=== PATIENT | male | born 1965 | race Two or more races ===

== ENCOUNTER 2023-04-29 14:42 | Emergency (ER) | payer OTHER, SELFPAY ==
--- NOTE | ~2023-04-29 | XR_ITS ---
EXAMINATION: XR CHEST CLINICAL INFORMATION: Shortness of breath COMPARISON: None available. TECHNIQUE: Frontal view of the chest was obtained. FINDINGS: Lungs are clear. No pulmonary vascular congestion. There is no pleural effusion. The heart size is normal. The cardiac and mediastinal contours are normal. Orthopedic screw noted in the proximal left humerus. There is osseous fusion of the posterior left fifth and sixth ribs. This may be congenital. XR/XR chest 1V IMPRESSION: No acute abnormality of the chest.
--- NOTE | ~2023-04-29 | US_ITS ---
EXAMINATION: US VENOUS ULTRASOUND WITH DOPPLER LOWER EXTREMITY, BILATERAL CLINICAL INFORMATION: Edema COMPARISON: None available. TECHNIQUE: Ultrasound of the deep veins is performed from the hip to the calf with compression sonography and color and pulse Doppler assessment. Spectral analysis with color-flow imaging is performed. FINDINGS: RIGHT: There is normal venous compression and respiratory variation and augmented flow. The visualized common femoral vein, superficial femoral vein, profunda femoral vein, popliteal vein, and the trifurcation region shows no evidence of deep venous thrombosis. There is no significant popliteal fossa cyst. Prominent lymph nodes are seen in the right inguinal region with fatty joseluis more likely reactive in nature. LEFT: There is normal venous compression and respiratory variation and augmented flow. The visualized common femoral vein, superficial femoral vein, profunda femoral vein, popliteal vein, and the trifurcation region shows no evidence of deep venous thrombosis. There is no significant popliteal fossa cyst. Prominent lymph nodes in the left inguinal region with fatty joseluis more likely reactive in nature. If the patient's symptoms persist, followup ultrasound in 5 days 7 days might be of value to exclude proximal propagation from a non-visualized calf vein. US/US venous duplex LE BI IMPRESSION: No DVT demonstrated in the bilateral lower extremity.
[2023-04-29 14:48] VITALS: BP 148/82; PULSE 87; O2SAT 95
[2023-04-29 14:52] VITALS: BP 128/77; PULSE 85; RESP 16; TEMP 37.2; O2SAT 94; BMI 26.5
--- NOTE | 2023-04-29 15:22 | ED.GENADULT ---
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 Related Data Previous Rx's Medication Instructions Recorded furosemide 20 mg tablet (Lasix) 20 mg PO DAILY #30 tabs 04/29/23 Allergies Allergy/AdvReac Type Severity Reaction Status Date / Time No Known Allergies Allergy Verified 04/29/23 15:29 Review of Systems Review of Systems: Yes all other systems are reviewed and are negative Neurologic: Denies Sensory deficit (Neuro) [facility] Social History Social History Advance Directives: No Advance Directives Information Provided: No Physical Exam ED Vital Signs: Vital Signs - 24 hr 04/29/23 14:52 Temperature 99 F Pulse Rate 85 Respiratory Rate 16 Blood Pressure 128/77 Pulse Oximetry 94 Oxygen Delivery Method Room Air BMI result Body Mass Index 26.5 Const Other: flat affect General: healthy appearing Nutritional Appearance: average body habitus Orientation/consciousness: oriented to person and patient oriented x3 Limitations: no limitations HENMT Head: Yes normal to inspection Ears: external ears normal General nose exam: Normal external nose present Mouth: Normal oral and palatal mucosa present and oropharynx normal Throat: Yes posterior oropharynx normal Eyes General: appearance normal, both eyes and all related structures Neck Neck: Yes normal visual inspection Chest Chest palpation & inspection: normal inspection of the chest Resp Auscultation: clear to auscultation bilaterally Cardio Jugular venous distension: no JVD Rate: regular rate Rhythm: regular rhythm Heart sounds: S1 normal heart sound present and S2 normal heart sound present GI Inspection: Yes normal to inspection Palpation (GI): Soft to palpation, nontender and No hepatosplenomegaly present Auscultation: normal bowel sounds General: Yes no CVA tenderness Back/Spine/Pelvis Back: no CVA tenderness Skin General skin exam: no rashes or lesions noted Neuro General: oriented to person and patient oriented x3 Cranial nerves: Yes CN's II-XII intact bilaterally Motor exam (neuro): 5/5 motor strength present throughout Sensory Exam: No Sensory deficit (Neuro) Extrem Other: bilateral 3+ edema Psych Appearance: grossly normal Course Reevaluation(s) Reevaluation #1: no evidence of DVT or chf will dc on lasix Time: 18:49 Medications Administered Discontinued Medications Generic Name Dose Route Start Last Admin Trade Name Richardq PRN Reason Stop Dose Admin Furosemide 20 mg 04/29/23 15:31 04/29/23 16:19 Furosemide 20 Mg Tablet PO 04/29/23 15:32 20 mg ONCE ONE Administration Protocol Medical Decision Making Differential Diagnosis Differential Diagnoses: The differential diagnosis associated with the presentation includes (CHF, renal failure, liver failure, DVT were all considered) Admission/Observation Consideration of admission/observation: Escalation of care including admission/observation considered (upon arrival patient was considered for admission) Lab Data MDM Lab Attestation statement: I reviewed the patient's lab results. 04/29/23 15:51 04/29/23 15:51 Labs: Lab Results 04/29/23 Range/Units 15:51 WBC 12.0 H (4.8-10.8) X10*3/uL RBC 3.72 L (4.60-5.80) X10*6/uL Hgb 11.1 L (14.0-18.0) g/dl Hct 34.1 L (42.0-52.0) % MCV 91.7 (80.0-98.0) fL MCH 29.8 (27.0-33.0) pg MCHC 32.6 (31.0-36.0) g/dl RDW 14.1 (11.0-16.0) % Plt Count 239 (160-400) X10*3/uL MPV 8.6 L (9.4-12.4) fL Immature Gran % (Auto) 4.1 H (0.0-0.4) % Neut % (Auto) 78.6 H (45-73) % Lymph % (Auto) 4.4 L (20-40) % Beadle % (Auto) 11.8 H (2-11) % Eos % (Auto) 0.8 (0-4) % Baso % (Auto) 0.3 (0-2) % Lymph # (Auto) 0.5 L (1.2-4.9) X10*3/uL Beadle # (Auto) 1.4 H (0.1-1.2) X10*3/uL Eos # (Auto) 0.1 (0.0-0.4) X10*3/uL Baso # (Auto) 0.0 (0.0-0.2) X10*3/uL Abs Immat Gran (auto) 0.49 H (0.00-0.03) X10*3/uL Absolute Neuts (auto) 9.4 H (2.0-8.3) x10*3/uL Absolute Nucleated RBC 0.000 (0.0-0.012) X10*3/uL Nucleated RBC % (auto) 0.0 (0.0-0.2) /100WBC Sodium 137 (135-145) mmol/L Potassium 4.9 (3.3-5.1) mmol/L Chloride 101 (96-108) mmol/L Carbon Dioxide 27 (22-29) mmol/L Anion Gap 14 (12-20) BUN 23 H (9-16) mg/dL Creatinine 0.80 (0.5-1.4) mg/dL Estim Creat Clear Calc 107.7 Estimated GFR > 60 Random Glucose 107 (60-115) mg/dL Calcium 9.6 (8.4-10.2) mg/dL Total Bilirubin 0.3 (0.0-1.0) mg/dL AST 41 H (5-37) U/L ALT 50 H (0-40) U/L Alkaline Phosphatase 88 (39-117) U/L B-Natriuretic Peptide 10 (<100) pg/mL Total Protein 7.0 (6.5-8.0) g/dL Albumin 3.9 (3.5-5.0) g/dL Independent Interpretation I performed an independent interpretation of an: EKG (sinus [address] or twave changes) and Plain X-Ray (CXR no chf or infiltrate) Independent Historian Clinical information obtained from an independent historian. History obtained from or confirmed by: EMS Chronic Conditions Patient?s care impacted by: Hypertension and Other (psychiatric) Social Determinants Patient?s care significantly limited by Social Determinants of Health including: Other Social Determinant of Health (psychiatric illness) Discharge Plan Discharge Clinical Impression: Edema Patient Disposition: Home, Self-Care Instructions: Leg Edema (ED) Prescriptions: New furosemide [Lasix] 20 mg tablet 20 mg PO DAILY Qty: 30 0RF Referrals: Shakira Jones [Primary Care Provider] - 1 week
--- NOTE | 2023-04-29 15:30 | ECG_ITS ---
Test Reason : SOB Blood Pressure : / mmHG Vent. Rate : 082 BPM Atrial Rate : 082 BPM P-R Int : 136 ms QRS Dur : 080 ms QT Int : 382 ms P-R-T Axes : 023 029 030 degrees QTc Int : 446 ms Normal sinus rhythm Normal ECG No previous ECGs available Referred By: Jake Apple Electronically Signed By:OLIVER MAIN
[2023-04-29 15:54] LABS: MANUAL DIFF FLAG NO
[2023-04-29 15:55] LABS: Basophils Percent Auto 0.3 % (0-2); Eosinophils Absolute Auto 0.1 X10*3/uL (0.0-0.4); Eosinophils Percent Auto 0.8 % (0-4); Hematocrit 34.1 % (42.0-52.0); Hemoglobin 11.1 g/dl (14.0-18.0); Imm Gran Abs Auto 0.49 X10*3/uL (0.00-0.03); Imm Gran Pct Auto 4.1 % (0.0-0.4); Lymphocytes Absolute Auto 0.5 X10*3/uL (1.2-4.9); Lymphocytes Percent Auto 4.4 % (20-40); Mean Corpuscular HGB Conc 32.6 g/dl (31.0-36.0); Mean Corpuscular Hemoglobin 29.8 pg (27.0-33.0); Mean Corpuscular Volume 91.7 fL (80.0-98.0); Mean Platelet Volume 8.6 fL (9.4-12.4); Monocytes Absolute Auto 1.4 X10*3/uL (0.1-1.2); Monocytes Percent Auto 11.8 % (2-11); Neutrophils Absolute Auto 9.4 x10*3/uL (2.0-8.3); Neutrophils Percent Auto 78.6 % (45-73); Platelet Count 239 X10*3/uL (160-400); Red Blood Count 3.72 X10*6/uL (4.60-5.80); Red Cell Distribution Width 14.1 % (11.0-16.0)
[2023-04-29 16:10] LABS: Alanine Aminotransferase 50 U/L (0-40); Albumin Level 3.9 g/dL (3.5-5.0); Alkaline Phosphatase 88 U/L (39-117); Anion Gap 14 (12-20); Aspartate Amino Transferase 41 U/L (5-37); Bilirubin Total 0.3 mg/dL (0.0-1.0); Blood Urea Nitrogen 23 mg/dL (9-16); Calcium 9.6 mg/dL (8.4-10.2); Carbon Dioxide 27 mmol/L (22-29); Chloride 101 mmol/L (96-108); Creatinine Clr Calc Pharmacy 107.7; Estimated Glomerular Filt Rate > 60; Glucose Random 107 mg/dL (60-115); Potassium 4.9 mmol/L (3.3-5.1); Sodium 137 mmol/L (135-145)
[2023-04-29 16:15] LABS: B Type Natriuretic Peptide 10 pg/mL (<100)
[2023-04-29] MEDS: Furosemide 20 MG TABLET PO (16:19)
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
--- OUTSIDE RECORDS SUMMARY | 2023-04-29 17:30 | XMS_ITS | Continuity of Care Document ---
Author Name Unknown Organization [facility] Address [address] [place] [address]- Care Team Providers Care Actuary Name Role Phone Shakira Jones MD Primary Care Physician Encounter [facility] [place] Date(s): 11/07/19 - 12/07/19 [facility] [place] [address] [place] [address]- [facility] Attending Physician: Campos Begum MD Admitting Physician: Campos Begum MD Allergies, Adverse Reactions, Alerts Substance Reaction [...] 11/21/19 13:25:00 EDT, Route to Pharmacy Electronically, [facility]acy #[id number], 180, cm, 06/21/19 14:04:00 [...] tablet, 3 Refills, Maintenance, 08/18/19 16:53:00 EDT, [facility]/pharmacy #[id number], 180, cm, 06/21/19 14:04:00 EST, Height, 88, kg, 10/18/18 10:38:00 EDT, Dry Weight Start Date: 08/18/19 Stop Date: 12/16/19 Status: Ordered buprenorphine-naloxone 8 mg-2 mg sublingual film 1 film, Sublingual, Daily, [id number] dissolve under the tongue DUE 08/31/2019, # 7 film, 0 Refills, Maintenance, 08/25/19 10:56:00 EDT, Film, [facility], 1 film Sublingual Daily,x7days,[id number]; dissolve under the tongue;... Start Date: 08/25/19 [...] Maintenance, :17:00 EDT, Route to Pharmacy Electronically, [facility]acy #[id number], 180, cm, 06/21/19 14:04:00 EST, Height, 88, kg, 10/18/18 10:38:00 EDT, Dry Weight Start Date: 11/30/19 Status: Ordered Tylenol Extra Strength 500 mg oral tablet 2 tablet = 1,000 mg, By Mouth, 3 times a day, PRN Pain , Mild, not to exceed 3000 mg/day, # 50 tablet, 0 Refills, Maintenance, 10/02/19 18:19:00 EDT, [facility]/pharmacy #[id number], 180, cm, 06/21/19 14:04:00 [...]
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
--- OUTSIDE RECORDS SUMMARY | 2023-04-29 17:31 | XMS_ITS | Continuity of Care Document ---
Author Name Unknown Organization [facility] Address [address] [place] [address]- Care Team Providers Care Career Law Clerk Name Role Phone Robert MORALES, Shakira Primary Care Physician Encounter [facility] Date(s): 04/10/19 - 05/19/19 [facility]/[address] [address]- [facility] Attending Physician: Gaurav Liriano MD Admitting Physician: [...] 3 Refills, Maintenance, Route to Pharmacy Electronically, [id number], [facility] Start Date: 07/21/18 Status: [...]
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
--- OUTSIDE RECORDS SUMMARY | 2023-04-29 17:31 | XMS_ITS | Continuity of Care Document ---
Author Name Unknown Organization [facility] Address [address] [place] [address]- Care Team Providers Care Police Pilot Name Role Phone Robert MORALES, Shakira Primary Care Physician Encounter [facility] Date(s): 08/30/19 - 10/07/19 [facility]/[address] [address]- [facility] Attending Physician: Gaurav Liriano MD Admitting [...] 08/18/19 16:54:00 EDT, Route to Pharmacy Electronically, [facility]/pharmacy #[id number], 180, cm, 06/21/19 14:04:00 EST, Height, 88, kg, 06/... Start Date: 08/18/19 Status: Ordered aspirin 325 mg oral delayed release tablet 325 mg, 1, tablet, By Mouth, Daily, # 30 tablet, Refills 0, Tot. Refills 0, Maintenance, 07/12/19 10:06:00 EDT, Print Requisition Start Date: 07/12/19 Status: Ordered atorvastatin 10 mg oral tablet 1 tablet = 10 mg, By Mouth, Daily, # 30 tablet, 3 Refills, Maintenance, 08/18/19 16:53:00 EDT, [facility]/pharmacy #[id number], 180, cm, 06/21/19 14:04:00 EST, Height, 88, kg, 10/18/18 10:38:00 EDT, Dry Weight Start Date: 08/18/19 Stop Date: 12/16/19 Status: Ordered buprenorphine-naloxone 8 mg-2 mg sublingual film 1 film, Sublingual, Daily, [id number] dissolve under the tongue DUE 08/31/2019, # 7 film, 0 Refills, Maintenance, 08/25/19 10:56:00 EDT, Film, [facility], 1 film Sublingual Daily,x7days,Instr:[id number]; dissolve under the tongue;... Start Date: 08/25/19 [...] By Mouth, Daily, # 30 capsule, Refills 1, Tot. Refills 1, Maintenance, 209:50:00 EDT, Route to Pharmacy Electronically, [facility]/pharmacy #[id number], 180, cm, 06/21/19 14:04:00 EST, Height, 88, kg, 10/18/18 10:38:00 EDT, Dry Weight Start Date: 09/06/19 Status: Ordered traZODone 50 mg oral tablet 50 mg, 1, tablet, By Mouth, Daily at bedtime, # 30 tablet, Refills 1, Tot. Refills 1, Maintenance, 08/17/19 9:49:00 EDT, Route to Pharmacy Electronically, [facility], 180, cm, 06/21/19 14:04:00 EST, Height, 88, kg, 10/18/18 10:38:0... Start Date: 08/17/19 Status: Ordered Tylenol Extra Strength 500 mg oral tablet 2 tablet = 1,000 mg, By Mouth, 3 times a day, PRN Pain , Mild, not to exceed 3000 mg/day, # 50 tablet, 0 Refills, Maintenance, 10/02/19 18:19:00 EDT, [facility]/pharmacy #[id number], 180, cm, 06/21/19 14:04:00 EST, Height, [...]
--- OUTSIDE RECORDS SUMMARY | 2023-04-29 17:31 | XMS_ITS | Continuity of Care Document ---
Author Name Unknown Organization [facility] Address [address] [place] [address]- Care Team Providers Care Vegetable Packer Name Role Phone Robert MORALES, Shakira Primary Care Physician Encounter [facility] Date(s): 09/07/19 - 10/07/19 [facility]/[address] [address]- [facility] Attending Physician: Jesenia Awad Admitting Physician: AdmJesenia [...] 08/18/19 16:54:00 EDT, Route to Pharmacy Electronically, [facility]/pharmacy #[id number], 180, cm, 06/21/19 14:04:00 EST, Height, 88, [...] tablet, 3 Refills, Maintenance, 08/18/19 16:53:00 EDT, [facility]/pharmacy #[id number], 180, cm, 06/21/19 14:04:00 EST, Height, 88, kg, 10/18/18 10:38:00 EDT, Dry Weight Start Date: 08/18/19 Stop Date: 12/16/19 Status: Ordered buprenorphine-naloxone 8 mg-2 mg sublingual film 1 film, Sublingual, Daily, [id number] dissolve under the tongue DUE 08/31/2019, # 7 film, 0 Refills, Maintenance, 08/25/19 10:56:00 EDT, Film, [facility], 1 film Sublingual Daily,x7days,Instr:[id number]; dissolve under the tongue;... Start Date: 08/25/19 [...] Maintenance, 209:50:00 EDT, Route to Pharmacy Electronically, [facility]/pharmacy #[id number], 180, cm, 06/21/19 14:04:00 EST, Height, 88, kg, 10/18/18 10:38:00 EDT, Dry Weight Start Date: 09/06/19 Status: Ordered traZODone 50 mg oral tablet 50 mg, 1, tablet, By Mouth, Daily at bedtime, # 30 tablet, Refills 1, Tot. Refills 1, Maintenance, 08/17/19 9:49:00 EDT, Route to Pharmacy Electronically, [facility], 180, cm, 06/21/19 14:04:00 EST, Height, 88, kg, 10/18/18 10:38:0... Start Date: 08/17/19 Status: Ordered Tylenol Extra Strength 500 mg oral tablet 2 tablet = 1,000 mg, By Mouth, 3 times a day, PRN Pain , Mild, not to exceed 3000 mg/day, # 50 tablet, 0 Refills, Maintenance, 10/02/19 18:19:00 EDT, [facility]/pharmacy #[id number], 180, cm, 06/21/19 14:04:00 [...]
--- OUTSIDE RECORDS SUMMARY | 2023-04-29 17:31 | XMS_ITS | Continuity of Care Document ---
Author Name Unknown Organization [facility] Address [address] [place] [address]- Care Team Providers Care Rn Clinician Name Role Phone Robert MORALES, Shakira Primary Care Physician ( [phone] [place] [facility] [place] 05/07/20 - 06/06/20 [facility] [address] [address]- Attending Physician: Jesenia Awad Admitting Physician: Jesenia [...] 30 tablet, 3 Refills, Maintenance,03/13/20 11:31:00 EST, [facility]/pharmacy #[id number], 180, cm, 06/21/19 14:04:00 EST, Height, [...] tablet, 5 Refills, Maintenance, 12/26/19 15:13:00 EDT, [facility]/pharmacy #[id number], 180, cm, 06/21/19 14:04:00 EST, Height, [...] Ordered Methadone = 60 mg, By Mouth, [facility], 0 Refills, Maintenance, 03/13/20 11:32:00 EST, Partial fill upon patient request Start Date: 03/13/20 Status: Ordered nalOXONE 1 mg/mL injectable solution See Instructions, overdose kit with atomixer and instructions 0.5 mL each nostril per education forOD, # 2 mL, 0 Refills, Soft Stop, 01/01/20 17:25:00 EDT, [facility]/pharmacy #[id number], 180, cm, 06/21/19 14:04:00 EST, Height, 88, kg, 10/18/18 10:38:00 EDT, Dry... Start Date: 01/01/20 Status: Ordered tamsulosin 0.4 mg oral capsule 0.4 mg, 1, capsule, By Mouth, Daily, # 30 capsule, Refills 3, Tot. Refills 3, Maintenance, :17:00 EDT, Route to Pharmacy Electronically, [facility]/pharmacy #[id number], 180, cm, 06/21/19 14:04:00 EST, Height, 88, kg, 10/18/18 10:38:00 EDT, Dry Weight Start Date: 11/30/19 Status: Ordered Tylenol Extra Strength 500 mg oral tablet 2 tablet = 1,000 mg, By Mouth, 3 times a day, PRN Pain , Mild, not to exceed 3000 mg/day, # 50 tablet, 0 Refills, Maintenance, 10/02/19 18:19:00 EDT, [facility]/pharmacy #[id number], 180, cm, 06/21/19 14:04:00 EST, Height, [...] Active 1-evaluated by PVU 2-on methadone at [facility] Social History Social History Type Response Smoking Status 10 or more cigarette s (1/2 pack or more)/day in last 30 days entered on: 06/21/19 Sex
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
--- OUTSIDE RECORDS SUMMARY | 2023-04-29 17:31 | XMS_ITS | Continuity of Care Document ---
Author Name Unknown Organization [facility] Address [address] [place] [address]- Care Team Providers Care Assembly Line Driver Name Role Phone Robert MORALES, Shakira Primary Care Physician ( [phone] Encounter [facility] [place] Date(s): 11/06/19 - 12/06/19 [facility]/[address] [address]- [facility] Allergies, Adverse Reactions, Alerts Substance Reaction [...] 13:25:00 EDT, Route to Pharmacy Electronically, [facility]/pharmacy #[id number], 180, cm, 06/21/19 14:04:00 EST, Heigh... [...] 3 Refills, Maintenance, 08/18/19 16:53:00 EDT, [facility]/pharmacy #[id number], 180, cm, 06/21/19 14:04:00 EST, Height, 88, kg, 10/18/18 10:38:00 EDT, Dry Weight Start Date: 08/18/19 Stop Date: 12/16/19 Status: Ordered buprenorphine-naloxone 8 mg-2 mg sublingual film 1 film, Sublingual, Daily, [id number] dissolve under the tongue DUE 08/31/2019, # 7 film, 0 Refills, Maintenance, 08/25/19 10:56:00 EDT, Film, [facility], 1 film Sublingual Daily,x7days,Instr:[id number]; dissolve under the tongue;... Start Date: 08/25/19 [...] :17:00 EDT, Route to Pharmacy Electronically, [facility]/pharmacy #[id number], 180, cm, 06/21/19 14:04:00 EST, Height, 88, kg, 10/18/18 10:38:00 EDT, Dry Weight Start Date: 11/30/19 Status: Ordered Tylenol Extra Strength 500 mg oral tablet 2 tablet = 1,000 mg, By Mouth, 3 times a day, PRN Pain , Mild, not to exceed 3000 mg/day, # 50 tablet, 0 Refills, Maintenance, 10/02/19 18:19:00 EDT, [facility]/pharmacy #[id number], 180, cm, 06/21/19 14:04:00 EST, Height, [...]
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
--- OUTSIDE RECORDS SUMMARY | 2023-04-29 17:31 | XMS_ITS | Continuity of Care Document ---
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 Selector Name Role Phone Robert MORALES, Shakira Primary Care Physician ( [phone] [place] [facility] [place]22 - 03/21/22 [facility] [address]- Attending Physician: Shakira Jones MD Admitting Physician: Shakira Jones MD Allergies, Adverse Reactions, Alerts No Known Allergies Immunizations Given and Recorded Vaccine Date Status Refusal Reason SARS-CoV-2 mRNA ([id number]-grqs-gxobr) vax 07/29/21 Given SARS-CoV-2 (COVID-19) Ad26 vaccine [...] Refills, Maintenance, 01/12/22 13:48:00 EDT, [id number], 180, cm, 09/23/20 12:21:00 EDT, Height Start Date: 01/12/22 Status: Ordered hydrOXYzine pamoate 50 mg oral capsule See Instructions, TOME LUIS CAPSULA POR VIA ORAL DOS VECES AL THOR CARLA SEA NECESARIO PARA LA ANSIEDAD, # 60 capsule, 3 Refills, Maintenance, 10/09/21 8:30:00 EDT, [facility]/pharmacy #[id number], 180, cm, 09/23/20 12:21:00 EDT, Height Start Date: 10/09/21 Status: Ordered Methadone = 80 mg, By Mouth, [facility], 0 Refills, Maintenance, 03/13/20 11:32:00 EST, Partial fill upon patient request Start Date: 03/13/20 Status: Ordered mirtazapine 15 mg oral tablet See Instructions, TOME LUIS TABLETA TODOS LOS ADDISON AL ACOSTARSE, # 30 tablet, 5 Refills, [id number], 180, cm, 09/23/20 12:21:00 EDT, Height Start Date: 02/11/21 Status: Ordered mirtazapine 15 mg oral tablet See Instructions, TOME LUIS TABLETA TODOS THERESA ADDISON AL ACOSTARSE, # 30 tablet, 5 Refills, [facility], 180, cm, 09/23/20 12:21:00 EDT, Height Start [...] oral capsule See Instructions, TOME LUIS CAPSULA TOS THERESA ADDISON, # 30 capsule, Refills 6, Instructions Replace Required Details, Route to Pharmacy Electronically, [id number], 180, cm, 09/23/20 12:21:00 EDT, Height Start Date: 11/27/21 Status: Ordered tamsulosin 0.4 mg oral capsule 0.4 mg, 1, capsule, By Mouth, Daily, # 30 capsule, Refills 6, Tot. Refills 6, Maintenance, 09/09/2113:30:00 EDT, Route to Pharmacy Electronically, [facility]/pharmacy #[id number], 180, cm, 09/09/20 13:19:00 EDT,Height, [...] 3- with anxious features 4-on methadone at [facility] Social History Social History Type [...] Nurse Name: Shakira Jones MD Position: S Primary Care Physician Member Role: PCP Address: Address: [address] [place] [address]- Name: Suni Rowe RN Position: S RN Member Role: Primary Care Nurse Care Team Related Persons Name: SERGEY DUONG Address: [address] [place] [address] Name: RIGO WALTON Address: [address] [place] [address]
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
--- OUTSIDE RECORDS SUMMARY | 2023-04-29 17:31 | XMS_ITS | Continuity of Care Document ---
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 Name Role Phone Robert MORALES, Shakira Primary Care Physician Encounter [facility] [place] Date(s): 02/04/23 - 03/21/23 [facility] [address]- Attending Physician: Yas Wakefield MD Admitting Physician: Yas Wakefield MD Allergies, Adverse Reactions, Alerts No Known Allergies Immunizations Given and Recorded Vaccine Date Status Refusal Reason SARS-CoV-2 mRNA (tvmaapl-nyaf-obrxj) vax 07/29/21 Given SARS-CoV-2 (COVID-19) Ad26 vaccine [...] tablet, 5 Refills, Maintenance, 01/12/22 13:48:00 EDT, [id number], 180, cm, 09/23/20 12:21:00 EDT, Height Start Date: 01/12/22 Status: Ordered hydrOXYzine pamoate 50 mg oral capsule See Instructions, TOME LUIS CAPSULA POR VIA ORAL DOS VECES AL THOR CARLA SEA NECESARIO PARA LA ANSIEDAD, # 60 capsule, 3 Refills, Maintenance, 07/23/22 12:59:00 EDT, [facility], 180, cm, 09/23/20 12:21:00 EDT, Height Start Date: 07/23/22 Status: Ordered Methadone = 80 mg, By Mouth, [facility], 0 Refills, Maintenance, 03/13/20 11:32:00 EST, Partial fill upon patient request Start Date: 03/13/20 Status: Ordered mirtazapine 15 mg oral tablet See Instructions, TOME LUIS TABLETA TOVELASCO AL ACOSTARSE, # 30 tablet, 5 Refills, [facility], 180, cm, 09/23/20 12:21:00 EDT, Height Start Date: 02/11/21 Status: Ordered mirtazapine 15 mg oral tablet See Instructions, TOME LUIS TABLETA EAST[place] ADDISON AL ACOSTARSE, # 30 tablet, 5 Refills, [facility], 180, cm, 09/23/20 12:21:00 EDT, Height Start [...] oral capsule See Instructions, TOME LUIS CAPSULA EASTON ADDISON, # 30 capsule, Refills 6, Instructions Replace Required Details, Route to Pharmacy Electronically, [facility], 180, cm, 09/23/20 12:21:00 EDT, Height Start Date: 11/27/21 Status: Ordered tamsulosin 0.4 mg oral capsule 0.4 mg, 1, capsule, By Mouth, Daily, # 30 capsule, Refills 6, Tot. Refills 6, Maintenance, 09/09/2113:30:00 EDT, Route to Pharmacy Electronically, [facility]/pharmacy #[id number], 180, cm, 09/09/20 13:19:00 EDT,Height, [...] 3- with anxious features 4-on methadone at [facility] Social History Social History Type [...] Primary Care Member Role: PCP Address: Address: [address] [place] [id number]- Name: Suni Rowe RN Position: S RN Member Role: Primary Care Nurse Care Team Related Persons Name: SERGEY DUONG Address: [address] [place] [address] Name: RIGO WALTON Address: [address] [place] [address]
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
--- OUTSIDE RECORDS SUMMARY | 2023-04-29 17:31 | XMS_ITS | Continuity of Care Document ---
Author Name Unknown Organization [facility] ter Address [address] [place] [id number]- Care Team Providers Care Newspaper Editor Name Role Phone Robert MORALES, Shakira Primary Care Physician Encounter [facility] Date(s): 09/24/22 - 09/25/[address] [address]- Encounter Diagnosis Dental infection(Final) - 09/25/22 Discharge Disposition: A-D/C Home Attending Physician: Daniela Knowles DO Admitting Physician: Daniela Knowles DO Referring Physician: Not on Staff, Referring MD Allergies, Adverse Reactions, Alerts No Known Allergies Immunizations Given and Recorded Vaccine Date Status Refusal Reason SARS-CoV-2 mRNA (cwovqtw-bwww-plxhq) vax 07/29/21 Given SARS-CoV-2 (COVID-19) Ad26 vaccine [...] 10 mg oral tablet See Instructions, CARROL ADDISON, # 30 tablet, 5 Refills, Maintenance, 01/12/22 13:48:00 EDT, [id number], 180, cm, 09/23/20 12:21:00 EDT, Height Start Date: 01/12/22 Status: Ordered Augmentin 875 mg-125 mg oral tablet 1 tablet, By Mouth, Every 12 hours, for 10 days, # 20 tablet, 0 Refills, Acute 10/05/22 6:43:00 EDT, 09/25/22 6:43:00 EDT, Tablet, [facility], Partial fill upon patient request if the prescription is for a schedule II opioid drug., 67.3, kg,... Start Date: 09/25/22 Stop Date: 10/05/22 Status: Ordered hydrOXYzine pamoate 50 mg oral capsule See Instructions, TOME REINA CAPSULA POR VIA ORAL DOS VECES AL THOR CARLA SEA NECESARIO PARA LA ANSIEDAD, # 60 capsule, 3 Refills, Maintenance, 07/23/22 12:59:00 EDT, [id number], 180, cm, 09/23/20 12:21:00 EDT, Height Start Date: 07/23/22 Status: Ordered Methadone = 80 mg, By Mouth, [facility], 0 Refills, Maintenance, 03/13/20 11:32:00 EST, Partial fill upon patient request Start Date: 03/13/20 Status: Ordered mirtazapine 15 mg oral tablet See Instructions, TOME REINA TABLETA TODOS LOS ADDISON AL ACOSTARSE, # 30 tablet, 5 Refills, [facility], 180, cm, 09/23/20 12:21:00 EDT, Height Start Date: 02/11/21 Status: Ordered mirtazapine 15 mg oral tablet See Instructions, TOME REINA TABLETA TODOS LOS ADDISON AL ACOSTARSE, # 30 tablet, 5 Refills, [facility], 180, cm, 09/23/20 12:21:00 EDT, Height Start [...] Details, Route to Pharmacy Electronically, [id number], 180, cm, 09/23/20 12:21:00 EDT, Height Start Date: 11/27/21 Status: Ordered tamsulosin 0.4 mg oral capsule 0.4 mg, 1, capsule, By Mouth, Daily, # 30 capsule, Refills 6, Tot. Refills 6, Maintenance, 09/09/2113:30:00 EDT, Route to Pharmacy Electronically, [facility]/pharmacy #[id number], 180, cm, 09/09/20 13:19:00 EDT,Height, [...] 3- with anxious features 4-on methadone at [facility] Results Radiology Reports * Exam Date Time Procedure Performing Provider Status 09/25/22 4:[address] Soft Tissue Neck W/ Contrast Zenaida Chirinos; Auth (Verified) Notes: (CT Soft Tissue Neck W/ Contrast) Reason For Exam: Abscess/Inflammation RESULT: CT Soft Tissue Neck W/ Contrast CT Soft Tissue Neck W/ Contrast INDICATION/CLINICAL QUESTION: Woke up with left lower jaw swelling and pain. denies fever chills nausea vomitng. denies dentasl pain.; Reason: Abscess Inflammation; Clinical Question(s): Abscess; Order Comment: / Abscess. TECHNIQUE: Spiral CT neck with IV contrast formatted in 3 planes. 100 cc of Omnipaque 300 was administered intravenously. Weight-based protocol using automatic tube modulation was used to optimize exposure parameters. COMPARISON: None. FINDINGS: Jet Operator View Findings, Lines and Tubes: None. Intracranial structures: Visualized portions are unremarkable. Orbits: Visualized portions are unremarkable. Paranasal sinuses and mastoids: Mild mucosal thickening of the left maxillary sinus Mucosal surfaces: Mucosal surfaces appear normal and symmetric, including the pharynx, larynx, and visualized portions of the upper trachea and esophagus. Superficial and deep neck spaces: Bulkiness of the facial muscles lateral to the left mandible withadjacent soft tissue stranding which may represent a developing odontogenic infection. No discrete abscess. No evidence of Manolo's angina. Cervical lymph nodes: Normal in size and morphology. Salivary glands: The parotid glands and submandibular glands are normal. Thyroid gland: Normal CT appearance Vascular structures: Unremarkable. Upper chest: The upper lungs are clear. The upper mediastinum is unremarkable. Bones and teeth: Apical periodontitis involving the mandibular left central incisor, 2nd premolar, right canine, axillary left premolar, and right lateral incisor. IMPRESSION: Extensive apical periodontitis with bulkiness of the facial muscles/edema lateral to the left mandible suggestive of a developing odontogenic infection. No discrete fluid collection, abscess, or suggestion of Manolo's angina. I have personally reviewed the images and I agree with this report. WSN: [id number] Ordering Physician: Daniela Knowles Dictated By: Naeem Coello MD Dictated Date/Time: 09/25/22 6:57 am Reviewed By: Jake Hayes MD Signed By: Jake Hayes MD Signed Date/Time: 09/25/22 7:02 am Transcribed By: DENISE Transcribed Date/Time: 09/25/22 4:49 am * Exam Date Time Procedure Performing Provider Status 09/25/22 4:[address] Head/Brain W/O Contrast Zenaida Chirinos ; Yves (Verified) Notes: (CT Head/Brain W/O Contrast) Reason For Exam: Headache(s) RESULT: CT Head/Brain W/O Contrast CT Head/Brain W/O Contrast INDICATION: Hx of Present Illness: woke up with left lower jaw swelling and pain. denies fever chills nausea vomitng. denies dentasl pain.; Reason: Headache(s); Clinical Question(s): Infarction; Order Comment: TECHNIQUE: Noncontrast head CT using axial technique and reconstructed in axial and coronal planes.Iterative reconstruction techniques are used to optimize dose and image quality. COMPARISON: None. FINDINGS: Jet Operator view findings, lines and tubes: None. BRAIN AND EXTRA-AXIAL SPACES: No parenchymal hemorrhage, midline shift, or mass effect. Gomes-white matter differentiation is wellpreserved. No acute infarct. Negative insular ribbon and hyperdense vessel signs. Ventricles, sulci, and basilar cisterns are normal. No white matter lesions. No subarachnoid hemorrhage. No subdural or epidural collection. CALVARIUM, SKULL BASE, AND SOFT TISSUES: No fractures or suspicious bony lesions. The paranasal sinuses and mastoid air cells are clear. Visualized orbits and globes are intact. The extracranial soft tissues are unremarkable. IMPRESSION: No acute intracranial pathology. I have personally reviewed the images and I agree with this report. WSN: [id number] Ordering Physician: Daniela Knowles Dictated By: Naeem Coello MD Dictated Date/Time: 09/25/22 6:54 am Reviewed By: Jake Hayes MD Signed By: Jake Hayes MD Signed Date/Time: 09/25/22 6:59 am Transcribed By: DENISE Transcribed Date/Time: 09/25/22 4:21 am Vital Signs Most recent to oldest [Reference Range]: 1 2 3 Weight 67.3 kg (09/24/22 11:17 PM) Oxygen Saturation [94-100 %] 97 % (09/25/22 6:30 AM) 97 % (09/25/22 4:49 AM) 95 % (09/25/22 2:08 AM) Pulse Rate [55-90 bpm] 50 bpm *L* (09/25/22 6:30 AM) 49 bpm *L* (09/25/22 4:49 AM) 50 bpm *L* (09/25/22 2:08 AM) Blood Pressure [90-138/55-84 mm Hg] 124/91mm Hg (09/25/22 6:30 AM) 112/89mm Hg (09/25/22 4:49 AM) 104/75mm Hg (09/25/22 2:08 AM) Respiratory Rate [16-30 br/min] 13 br/min *L* (09/25/22 6:30 AM) 12 br/min *L* (09/25/22 4:49 AM) 13 br/min *L* (09/25/22 2:08 AM) Temperature [96.8-100.4 DegF] 97.6 DegF (09/25/22 6:30 AM) 97.4 DegF (09/25/22 2:08 AM) 98.1 DegF (09/25/22 1:28 AM) Mode of Delivery (Oxygen) Room air (09/25/22 6:30 AM) Room air (09/25/22 4:49 AM) Room air (09/25/22 2:08 AM) Blood pressure sites Arm, left (09/25/22 6:30 AM) Arm, left (09/25/22 4:49 AM) Arm, left (09/25/22 2:08 AM) Temperature Route Oral (09/25/22 6:30 AM) Oral (09/25/22 2:08 AM) Oral (09/25/22 1:28 AM) Dry Weight 67.3 kg (09/24/22 11:17 PM) Social History Social History Type Response Smoking Status 10 or more cigarette s (1/2 pack or more)/day in last 30 days entered on: 06/21/19 Sex Note * Eleni DO, Daniela L: PERFORM Event Display: Patient Education Leaflets Authored Date: [id number] Dental Cavity ?? [id number] Caries dentales Reina caries dental es reina hendidura o reina cavidad en la superficie de un diente o reina muela. Tanto los adultos tang los ni??os pueden tener caries. Camden hace que la capa interior del diente, que es muy sensible, quede expuesta y provoca dolor. Si un dentista no trata la caries, esta se morro?? m??s lupillo. Puede ingresar en la pulpa y causar reina infecci??n o reina bolsa de pus (absceso) en el hueso sharon parte terminal de reina ra??z dental. Reina infecci??n en un diente o reina muela es un problema muchom??s grave que reina caries. Si el diente o la muela se infectan, necesitar?? un tratamiento de conducto o puede que deban sacarle el diente o la muela (extracci??n). El dolor dental puede empeorar si come dulces o si jerzy bebidas calientes o fr??as. El dolor puede extenderse desde el diente hasta el o??do o la ok de la jaz??bula de rebecca mismo lado. Cuidados en el hogar Siga estos consejos para cuidarse en kimball casa: ??? Evite los alimentos dulces y las bebidas calientes y fr??as. Los dientes y las muelas pueden ser sensibles a los cambios de temperatura. ??? Aplique reina compresa fr??a sobre la jaz??bula, encima de la ok que le duele, para aliviar el dolor. ??? Puede ingerir medicamentos de venta krysta para aliviar el dolor, a menos que se le recete otro medicamento. Si sufre de alguna enfermedad a remi plazo (cr??tiburcio) del h??gado o de los ri??ones, consulte con el proveedor de atenci??n m??dica antes de chelle paracetamol o ibuprofeno. Hable tambi??n con el proveedor si alguna vez tuvo reina ??lcera estomacal o hemorragia gastrointestinal. ??? Si tiene signos de infecci??n, le sola??n antibi??swapnil. T??melos seg??n le hayan indicado. ?? Atenci??n de seguimiento Programe reina fernando de seguimiento con el dentista, o seg??n le hayan indicado. Es posible que el dolor desaparezca con el tratamiento que le hayan dado hoy. Clare solo un dentista puede diagnosticar y tratar de forma adecuada barbara problema para evitar que el da??o en los dientes o las muelas sea mayor. ?? Cu??ndo llamar al?? 911 Llame al?? 911 si tiene algo de lo siguiente: ??? Problemas para tragar o respirar ??? Debilidad o desmayos ??? Somnolencia anormal ??? Confusi??n ??? Dolor de rené o rigidez en el serg ??? Problemas de la vista ?? Cu??ndo debe buscar atenci??n m??dica Llame al proveedor de atenci??n m??dica de inmediato si se presenta cualquiera de las siguientes situaciones: ??? Enrojecimiento o hinchaz??n en la marianna ??? El dolor empeora o se propaga al serg ??? Fiebre de 100.4?F (38?C) o superior, o seg??n le indique kimball proveedor ??? Le supura pus del diente o la muela, o de la enc??a ?? Last Reviewed Date: 2022 ?? [id number] [employer]. Todos los derechos reservados. Esta informaci??n no pretende sustituir la atenci??n m??dica profesional. S??lo kimball m??dico puede diagnosticar y tratar un problema de jean. ?? * Daniela Knowles DO: PERFORM Event Display: Patient Education Leaflets Authored Date: [id number] [facility] - If You Need A Dentist ?? 33 If You Need a Dentist ?? For additional clinics and resources, see:? [email or web address] ?? Additional information:? [facility]-Dentistry for ALL ?Mon-Fri 9:00-5:00? ext [phone] ? [address] Tapan Plunkett DDS? [address], [place]? [phone] [facility]? [address], [place]? [phone] [facility]? [address] [place]? [phone] [facility]? [address]? [phone] [facility]? [address] [place]? [phone] [facility]? [address], [place]? [phone] [facility]? [address] [facility]? [phone] [facility]? [address], [place]? [phone] [facility]? [address], [place]? [phone] ? [address]? [facility]? [address], [place]?[phone] [facility]? [address], [place]?[phone] ? CT Head WO contrast * [employer] , CIS S: TRANSCRIBE Freddy MORALES, Jake S: VERIFY Oumou MORALES, Naeem: SIGN Event Display: Result: Authored Date: [id number] CT Head/Brain W/O Contrast INDICATION: Hx of Present Illness: woke up with left lower jaw swelling and pain. denies fever chills nausea vomitng. denies dentasl pain.; Reason: Headache(s); Clinical Question(s): Infarction; Order Comment: TECHNIQUE: Noncontrast head CT using axial technique and reconstructed in axial and coronal planes.Iterative reconstruction techniques are used to optimize dose and image quality. COMPARISON: None. FINDINGS: Jet Operator view findings, lines and tubes: None. BRAIN AND EXTRA-AXIAL SPACES: No parenchymal hemorrhage, midline shift, or mass effect. Gomes-white matter differentiation is wellpreserved. No acute infarct. Negative insular ribbon and hyperdense vessel signs. Ventricles, sulci, and basilar cisterns are normal. No white matter lesions. No subarachnoid hemorrhage. No subdural or epidural collection. CALVARIUM, SKULL BASE, AND SOFT TISSUES: No fractures or suspicious bony lesions. The paranasal sinuses and mastoid air cells are clear. Visualized orbits and globes are intact. The extracranial soft tissues are unremarkable. IMPRESSION: No acute intracranial pathology. I have personally reviewed the images and I agree with this report. WSN: [id number] Ordering Physician: Daniela Knowles Dictated By: Naeem Coello MD Dictated Date/Time: 09/25/22 6:54 am Reviewed By: Jake Hayes MD Signed By: Jake Hayes MD Signed Date/Time: 09/25/22 6:59 am Transcribed By: DENISE Transcribed Date/Time: 09/25/22 4:[address] Neck W contrast IV * [facility] , CIS S: TRANSCRIBE Jake Hayes MD: VERIFY Naeem Coello MD: SIGN Event Display: Result: Authored Date: [id number] CT Soft Tissue Neck W/ Contrast INDICATION/CLINICAL QUESTION: Woke up with left lower jaw swelling and pain. denies fever chills nausea vomitng. denies dentasl pain.; Reason: Abscess Inflammation; Clinical Question(s): Abscess; Order Comment: / Abscess. TECHNIQUE: Spiral CT neck with IV contrast formatted in 3 planes. 100 cc of Omnipaque 300 was administered intravenously. Weight-based protocol using automatic tube modulation was used to optimize exposure parameters. COMPARISON: None. FINDINGS: Jet Operator View Findings, Lines and Tubes: None. Intracranial structures: Visualized portions are unremarkable. Orbits: Visualized portions are unremarkable. Paranasal sinuses and mastoids: Mild mucosal thickening of the left maxillary sinus Mucosal surfaces: Mucosal surfaces appear normal and symmetric, including the pharynx, larynx, and visualized portions of the upper trachea and esophagus. Superficial and deep neck spaces: Bulkiness of the facial muscles lateral to the left mandible withadjacent soft tissue stranding which may represent a developing odontogenic infection. No discrete abscess. No evidence of Manolo's angina. Cervical lymph nodes: Normal in size and morphology. Salivary glands: The parotid glands and submandibular glands are normal. Thyroid gland: Normal CT appearance Vascular structures: Unremarkable. Upper chest: The upper lungs are clear. The upper mediastinum is unremarkable. Bones and teeth: Apical periodontitis involving the mandibular left central incisor, 2nd premolar, right canine, axillary left premolar, and right lateral incisor. IMPRESSION: Extensive apical periodontitis with bulkiness of the facial muscles/edema lateral to the left mandible suggestive of a developing odontogenic infection. No discrete fluid collection, abscess, or suggestion of Manolo's angina. I have personally reviewed the images and I agree with this report. WSN: [id number] Ordering Physician: Daniela Knowles Dictated By: Naeem Coello MD Dictated Date/Time: 09/25/22 6:57 am Reviewed By: Jake Hayes MD Signed By: Jake Hayes MD Signed Date/Time: 09/25/22 7:02 am Transcribed By: DENISE Transcribed Date/Time: 09/25/22 4:49 am Patient Care team information Care Team Personnel Name: Melody Broderick RN Position: [facility] RN Member Role: Primary Care Nurse Name: Sasha Amato RN Position: [facility] RN Member Role: Primary Care Nurse Name: Shakira Jones MD Position: [facility] Physician - Primary Care Member Role: PCP Address: Address: [address] [place] [address]- Name: Suni Rowe RN Position: [facility] RN Member Role: Primary Care Nurse [facility] Attending Position: [facility] ED Attendings Patient Name: Jaylene Okeefe RN Position: [facility] ED RN W/OE and Tasks Member Role: Patient Care Provider Name: Daniela Knowles DO Position: [facility] Resident Member Role: Admitting Physician Address: Address: [address] [place] [address] [place] [address]- Care Team Related Persons Name: SERGEY DUONG Address: [address] [address] Name: RIGO WALTON Address: [place] [address]
--- OUTSIDE RECORDS SUMMARY | 2023-04-29 17:31 | XMS_ITS | Continuity of Care Document ---
Author Name Unknown Organization [facility] Address [address] [place] [address]- Care Team Providers Care Acid Adjuster Name Role Phone Shakira Jones MD Primary Care Physician Encounter [facility] Date(s): 07/17/19 - 08/23/19 [facility]/[address] [address]- [facility] Attending Physician: Shakira Jones MD Admitting Physician: [...] 08/18/19 16:54:00 EDT, Route to Pharmacy Electronically, [facility]/pharmacy #[id number], 180, cm, 06/21/19 14:04:00 EST, Height, 88, [...] tablet, 3 Refills, Maintenance, 08/18/19 16:53:00 EDT, [facility]/pharmacy #[id number], 180, cm, 06/21/19 14:04:00 EST, Height, 88, kg, 10/18/18 10:38:00 EDT, Dry Weight Start Date: 08/18/19 Stop Date: 12/16/19 Status: Ordered docusate sodium 100 mg oral [...] 08/17/19 9:49:00 EDT, Route to Pharmacy Electronically, [facility], 180, cm, 06/21/19 14:04:00 EST, Height, [...]
--- OUTSIDE RECORDS SUMMARY | 2023-04-29 17:31 | XMS_ITS | Continuity of Care Document ---
Author Name Unknown Organization [facility] Address [address] [place] [address]- Care Team Providers Care Tester/Lift Trucker Name Role Phone Robert MORALES, Shakira Primary Care Physician Encounter [facility] Date(s): 01/09/20 - 02/08/20 [facility] [address] [address]- [facility] Attending Physician: Jesenia Awad Admitting Physician: AdmJesenia [...] 11/21/19 13:25:00 EDT, Route to Pharmacy Electronically, [facility]/pharmacy #[id number], 180, cm, 06/21/19 14:04:00 EST, Gokul... Start Date: 11/21/19 Stop Date: 03/20/20 Status: Ordered aspirin 325 mg oral delayed release tablet 325 mg, 1, tablet, By Mouth, Daily, # 30 tablet, Refills 0, Tot. Refills 0, Maintenance, 07/12/19 10:06:00 EDT, Print Requisition Start Date: 07/12/19 Status: Ordered atorvastatin 10 mg oral tablet 1 tablet = 10 mg, By Mouth, Daily, # 30 tablet, 5 Refills, Maintenance, 12/26/19 15:13:00 EDT, [facility]/pharmacy #[id number], 180, cm, 06/21/19 [...] 0 Refills, Soft Stop, 01/01/20 17:25:00 EDT, [facility]/pharmacy #[id number], 180, cm, 06/21/19 14:04:00 EST, Height, 88, kg, 10/18/18 10:38:00 EDT, Dry... Start Date: 01/01/20 Status: Ordered tamsulosin 0.4 mg oral capsule 0.4 mg, 1, capsule, By Mouth, Daily, # 30 capsule, Refills 3, Tot. Refills 3, Maintenance, :17:00 EDT, Route to Pharmacy Electronically, [facility]/pharmacy #[id number], 180, cm, 06/21/19 [...]
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
--- OUTSIDE RECORDS SUMMARY | 2023-04-29 17:31 | XMS_ITS | Continuity of Care Document ---
Author Name Unknown Organization [facility] Address [address] [place] [address]- Care Team Providers Care Manager Digital Ad Operations Name Role Phone Robert MORALES, Shakira Primary Care Physician ( [phone] Encounter [facility] Date(s): 02/19/23 - 03/21/23 [facility] [address]- Attending Physician: Admalvaro, Jesenia Admitting Physician: AdmtrJesenia Referring Physician: Admtr, Ar8 Allergies, Adverse Reactions, Alerts No Known Allergies Immunizations Given and Recorded Vaccine Date Status Refusal Reason SARS-CoV-2 mRNA ([id number]) vax 07/29/21 Given SARS-CoV-2 (COVID-19) Ad26 vaccine [...] Refills, Maintenance, 01/12/22 13:48:00 EDT, [facility], 180, cm, 09/23/20 12:21:00 EDT, Height Start Date: 01/12/22 Status: Ordered hydrOXYzine pamoate 50 mg oral capsule See Instructions, TOME LIUS CAPSULA POR VIA ORAL DOS VECES AL THOR CARLA SEA NECESARIO PARA LA ANSIEDAD, # 60 capsule, 3 Refills, Maintenance, 07/23/22 12:59:00 EDT, [facility], 180, cm, 09/23/20 12:21:00 EDT, Height Start Date: 07/23/22 Status: Ordered Methadone = 80 mg, By Mouth, [place] [facility], 0 Refills, Maintenance, 03/13/20 11:32:00 EST, Partial fill upon patient request Start Date: 03/13/20 Status: Ordered mirtazapine 15 mg oral tablet See Instructions, TOME LUIS TABLETA TODOS THERESA ADDISON AL ACOSTARSE, # 30 tablet, 5 Refills, [facility], 180, cm, 09/23/20 12:21:00 EDT, Height Start Date: 02/11/21 Status: Ordered mirtazapine 15 mg oral tablet See Instructions, TOME LUIS TABLETA TORODRIGUEZ ADDISON AL ACOSTARSE, # 30 tablet, 5 Refills, [facility], 180, cm, 09/23/20 12:21:00 EDT, Height Start [...] Details, Route to Pharmacy Electronically, [facility], 180, cm, 09/23/20 12:21:00 EDT, Height Start Date: 11/27/21 Status: Ordered tamsulosin 0.4 mg oral capsule 0.4 mg, 1, capsule, By Mouth, Daily, # 30 capsule, Refills 6, Tot. Refills 6, Maintenance, 09/09/2113:30:00 EDT, Route to Pharmacy Electronically, [facility]/pharmacy #[id number], 180, cm, 09/09/20 13:19:00 [...] 3- with anxious features 4-on methadone at [place] [facility] Social History Social History Type [...] Primary Care Member Role: PCP Address: Address: [address] [place] [id number]- Name: Suni Rowe RN Position: S RN Member Role: Primary Care Nurse Care Team Related Persons Name: SERGEY DUONG Address: home [address] [place] [address] Name: RIGO WALTON Address: home [address] [place] [address]
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
--- OUTSIDE RECORDS SUMMARY | 2023-04-29 17:31 | XMS_ITS | Continuity of Care Document ---
Author Name Unknown Organization [facility] Address [address] [place] [address]- Care Team Providers Care Deaf/Hard Of Hearing Specialist Name Role Phone Shakira Jones MD Primary Care Physician Encounter [facility] Date(s): 04/10/19 - 04/10/19 [facility]/[address] [address]- [facility] Discharge Disposition: A-D/C Home Attending Physician: Shakira Jones MD Admitting Physician: Shakira Jones MD Referring Physician: Shakira Jones MD Allergies, Adverse Reactions, [...] 3 Refills, Maintenance, Route to Pharmacy Electronically, [id number], [facility] Start Date: 07/21/18 Status: [...] oldest [Reference Range]: 1 Height 180 cm (04/10/19 2:49 PM) Weight 95.4 kg (04/10/19 2:49 PM) Oxygen Saturation [94-100 %] 97 % (04/10/19 2:49 PM) Pulse Rate [55-90 bpm] 79 bpm (04/10/19 2:49 PM) Body Mass Index [18.5-24.99] 29.44 *H* (04/10/19 2:49 PM) Blood Pressure [90-138/55-84 mm Hg] 122/ 84mm Hg (04/10/19 2:49 PM) Temperature [96.8-100.4 DegF] 98.6 DegF (04/10/19 2:49 PM) Mode of Delivery (Oxygen) Room air (04/10/19 2:49 PM) Blood pressure sites Arm, left (04/10/19 2:49 PM) Temperature Route Oral (04/10/19 2:49 PM) Weight Obtained Via Standing scale (04/10/19 2:49 PM) Social History Social History Type Response Smoking Status 10 or more cigarette s (1/2 pack or more)/day in last 30 days entered on: 11/07/18 Sex
--- OUTSIDE RECORDS SUMMARY | 2023-04-29 17:31 | XMS_ITS | Continuity of Care Document ---
Author Name Unknown Organization [facility] Address [address] [place] [address]- Care Team Providers Care Lift Truck Mechanic Name Role Phone Robert MORALES, Shakira Primary Care Physician Encounter [facility] Date(s): 08/28/22 - 09/27/22 [facility] [address]- Attending Physician: AdmJesenia john Admitting Physician: Admtr, Jesenia Referring Physician: Admtr, Ar8 Allergies, Adverse Reactions, Alerts No Known Allergies Immunizations Given and Recorded Vaccine Date Status Refusal Reason SARS-CoV-2 mRNA ([id number]) vax 07/29/21 Given SARS-CoV-2 (COVID-19) Ad26 vaccine [...] 10 mg oral tablet See Instructions, CARROL NGUYEN TODOS LOS ADDISON, # 30 tablet, 5 Refills, Maintenance, 01/12/22 13:48:00 EDT, [facility], 180, cm, 09/23/20 12:21:00 EDT, Height Start Date: 01/12/22 Status: Ordered Augmentin 875 mg-125 mg oral tablet 1 tablet, By Mouth, Every 12 hours, for 10 days, # 20 tablet, 0 Refills, Acute 10/05/22 6:43:00 EDT, 09/25/22 6:43:00 EDT, Tablet, [facility], Partial fill upon patient request if the prescription is for a schedule II opioid drug., 67.3, kg,... Start Date: 09/25/22 Stop Date: 10/05/22 Status: Ordered hydrOXYzine pamoate 50 mg oral capsule See Instructions, TOME LUIS CAPSULA POR VIA ORAL DOS VECES AL THOR CARLA SEA NECESARIO PARA LA ANSIEDAD, # 60 capsule, 3 Refills, Maintenance, 07/23/22 12:59:00 EDT, [facility], 180, cm, 09/23/20 12:21:00 EDT, Height Start Date: 07/23/22 Status: Ordered Methadone = 80 mg, By Mouth, [facility], 0 Refills, Maintenance, 03/13/20 11:32:00 EST, Partial fill upon patient request Start Date: 03/13/20 Status: Ordered mirtazapine 15 mg oral tablet See Instructions, TOME LUIS TABLETA TODOS LOS ADDISON AL ACOSTARSE, # 30 tablet, 5 Refills, [facility], 180, cm, 09/23/20 12:21:00 EDT, Height Start Date: 02/11/21 Status: Ordered mirtazapine 15 mg oral tablet See Instructions, TOME LUIS TABLETA TODOS LOS ADDISON AL ACOSTARSE, # 30 tablet, 5 Refills, [facility], 180, cm, 09/23/20 12:21:00 EDT, Height Start [...] 0.4 mg oral capsule See Instructions, CARROL LUIS JULESA TODOS LOS ADDISON, # 30 capsule, Refills 6, Instructions Replace Required Details, Route to Pharmacy Electronically, [facility], 180, cm, 09/23/20 12:21:00 EDT, Height Start Date: 11/27/21 Status: Ordered tamsulosin 0.4 mg oral capsule 0.4 mg, 1, capsule, By Mouth, Daily, # 30 capsule, Refills 6, Tot. Refills 6, Maintenance, 09/09/2113:30:00 EDT, Route to Pharmacy Electronically, [facility]/pharmacy #[id number], 180, cm, 09/09/20 13:19:00 [...] 3- with anxious features 4-on methadone at [facility] Social History Social History [...] Primary Care Member Role: PCP Address: Address: [address] [place] [address]- Name: Suni Rowe RN Position: S RN Member Role: Primary Care Nurse Care Team Related Persons Name: SERGEY DUONG Address: [place] [address] Name: RGIO WALTON Address: [place] [address]
--- OUTSIDE RECORDS SUMMARY | 2023-04-29 17:31 | XMS_ITS | Continuity of Care Document ---
Author Name Unknown Organization [facility] Address [address] [place] [address]- Care Team Providers Care Telecommunications Specialist Name Role Phone Robert MORALES, Shakira Primary Care Physician Encounter [facility] Date(s): 11/22/19 - 12/22/19 [facility] [address] [place] [address]- [facility] Allergies, Adverse Reactions, Alerts Substance Reaction Severity [...] 11/21/19 13:25:00 EDT, Route to Pharmacy Electronically, [facility]/pharmacy #[id number], 180, cm, 06/21/19 14:04:00 EST, Heigh... [...] tablet, 3 Refills, Maintenance, 08/18/19 16:53:00 EDT, [facility]/pharmacy #[id number], 180, cm, 06/21/19 14:04:00 EST, Height, 88, kg, 10/18/18 10:38:00 EDT, Dry Weight Start Date: 08/18/19 Stop Date: 12/16/19 Status: Ordered buprenorphine-naloxone 8 mg-2 mg sublingual film 1 film, Sublingual, Daily, [id number] dissolve under the tongue DUE 08/31/2019, # 7 film, 0 Refills, Maintenance, 08/25/19 10:56:00 EDT, Film, [facility], 1 film Sublingual Daily,x7days,Instr:[id number]; dissolve under the tongue;... Start Date: 08/25/19 [...] Maintenance, :17:00 EDT, Route to Pharmacy Electronically, [facility]/pharmacy #[id number], 180, cm, 06/21/19 14:04:00 EST, Height, 88, kg, 10/18/18 10:38:00 EDT, Dry Weight Start Date: 11/30/19 Status: Ordered Tylenol Extra Strength 500 mg oral tablet 2 tablet = 1,000 mg, By Mouth, 3 times a day, PRN Pain , Mild, not to exceed 3000 mg/day, # 50 tablet, 0 Refills, Maintenance, 10/02/19 18:19:00 EDT, [facility]/pharmacy #[id number], 180, cm, 06/21/19 14:04:00 EST, Height, [...]
--- OUTSIDE RECORDS SUMMARY | 2023-04-29 17:31 | XMS_ITS | Continuity of Care Document ---
Author Name Unknown Organization [facility] Address [address] [place] [address]- Care Team Providers Care Pharmacy Tech Customer Service Name Role Phone Robert MORALES, Shakira Primary Care Physician En[place] [id number] Date(s): 03/13/20 - 04/12/20 [facility] De [address] [address]- Attending Physician: Jesenia Awad Admitting Physician: Jesenia [...] 30 tablet, 3 Refills, Maintenance,03/13/20 11:31:00 EST, [facility]/pharmacy #[id number], 180, cm, 06/21/19 14:04:00 EST, [...] tablet, 5 Refills, Maintenance, 12/26/19 15:13:00 EDT, [facility]/pharmacy #[id number], 180, cm, 06/21/19 14:04:00 EST, [...] Ordered Methadone = 60 mg, By Mouth, [facility], 0 Refills, Maintenance, 03/13/20 11:32:00 EST, Partial fill upon patient request Start Date: 03/13/20 Status: Ordered nalOXONE 1 mg/mL injectable solution See Instructions, overdose kit with atomixer and instructions 0.5 mL each nostril per education forOD, # 2 mL, 0 Refills, Soft Stop, 01/01/20 17:25:00 EDT, [facility]/pharmacy #[id number], 180, cm, 06/21/19 14:04:00 EST, Height, 88, kg, 10/18/18 10:38:00 EDT, Dry... Start Date: 01/01/20 Status: Ordered tamsulosin 0.4 mg oral capsule 0.4 mg, 1, capsule, By Mouth, Daily, # 30 capsule, Refills 3, Tot. Refills 3, Maintenance, :17:00 EDT, Route to Pharmacy Electronically, [facility]/pharmacy #[id number], 180, cm, 06/21/19 14:04:00 EST, Height, 88, kg, 10/18/18 10:38:00 EDT, Dry Weight Start Date: 11/30/19 Status: Ordered Tylenol Extra Strength 500 mg oral tablet 2 tablet = 1,000 mg, By Mouth, 3 times a day, PRN Pain , Mild, not to exceed 3000 mg/day, # 50 tablet, 0 Refills, Maintenance, 10/02/19 18:19:00 EDT, [facility]/pharmacy #[id number], 180, cm, 06/21/19 14:04:00 EST, [...] Active 1-evaluated by PVU 2-on methadone at [facility] Social History Social History Type Response Smoking Status 10 or more cigarette s (1/2 pack or more)/day in last 30 days entered on: 06/21/19 Sex
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
--- OUTSIDE RECORDS SUMMARY | 2023-04-29 17:32 | XMS_ITS | Continuity of Care Document ---
Author Name Unknown Organization [facility] Address [address] [place] [address]- Care Team Providers Care Fitness Technician Name Role Phone Robert MORALES, Shakira Primary Care Physician Encounter [facility] Date(s): 02/19/22 - 03/21/22 [facility]/[place] [address]- Attending Physician: Admalvaro, Jesenia Admitting Physician: AdmtrJesenia Referring Physician: Admtr, Ar8 Allergies, Adverse Reactions, Alerts No Known Allergies Immunizations Given and Recorded Vaccine Date Status Refusal Reason SARS-CoV-2 mRNA (jfsswjc-zhsf-pbbpp) vax 07/29/21 Given SARS-CoV-2 (COVID-19) Ad26 vaccine [...] Refills, Maintenance, 01/12/22 13:48:00 EDT, [facility], 180, cm, 09/23/20 12:21:00 EDT, Height Start Date: 01/12/22 Status: Ordered hydrOXYzine pamoate 50 mg oral capsule See Instructions, TOME LUIS CAPSULA POR VIA ORAL DOS VECES AL THOR CARLA SEA NECESARIO PARA LA ANSIEDAD, # 60 capsule, 3 Refills, Maintenance, 10/09/21 8:30:00 EDT, [facility]/pharmacy #[id number], 180, cm, 09/23/20 12:21:00 EDT, Height Start Date: 10/09/21 Status: Ordered Methadone = 80 mg, By Mouth, [facility], 0 Refills, Maintenance, 03/13/20 11:32:00 EST, Partial fill upon patient request Start Date: 03/13/20 Status: Ordered mirtazapine 15 mg oral tablet See Instructions, TOME LUIS TABLETA TODOS THERESA ADDISON AL ACOSTARSE, # 30 tablet, 5 Refills, [facility], 180, cm, 09/23/20 12:21:00 EDT, Height Start Date: 02/11/21 Status: Ordered mirtazapine 15 mg oral tablet See Instructions, TOME LUIS TABLETA TOINMANS AL ACOSTARSE, # 30 tablet, 5 Refills, [facility], 180, cm, 09/23/20 12:21:00 EDT, Height Start Date: 11/27/21 Status: Ordered nalOXONE 1 mg/mL injectable solution See Instructions, overdose kit with atomixer and instructions 0.5 mL each nostril per education forOD, # 2 mL, 0 Refills, Soft Stop, 01/01/20 17:25:00 EDT, [facility]/pharmacy #[id number], 180, cm, 06/21/19 14:04:00 EST, [...] Details, Route to Pharmacy Electronically, [facility], 180, cm, 09/23/20 12:21:00 EDT, Height Start Date: 11/27/21 Status: Ordered tamsulosin 0.4 mg oral capsule 0.4 mg, 1, capsule, By Mouth, Daily, # 30 capsule, Refills 6, Tot. Refills 6, Maintenance, 09/09/2113:30:00 EDT, Route to Pharmacy Electronically, [facility]/pharmacy #[id number], 180, cm, 09/09/20 13:19:00 EDT,Height, [...] 3- with anxious features 4-on methadone at [facility] Social History Social History Type [...] Care Physician Member Role: PCP Address: Address: [address] [place] [address]- Name: Suni Rowe RN Position: S RN Member Role: Primary Care Nurse Care Team Related Persons Name: SERGEY DUONG Address: home [address] [place] [address] Name: RIGO WALTON Address: home [address] [place] [address]
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
--- OUTSIDE RECORDS SUMMARY | 2023-04-29 17:32 | XMS_ITS | Continuity of Care Document ---
Author Name Unknown Organization [facility] Address [address] [place] [address]- Care Team Providers Care Fuel Pilot Engineer Name Role Phone Robert MORALES, Shakira Primary Care Physician Encounter [place] Date(s): 11/07/19 - 12/08/19 [facility] [place] [address] [address]- [facility] Attending Physician: Ellen Aguirre MD Admitting Physician: Ellen Aguirre MD Allergies, Adverse Reactions, Alerts Substance Reaction [...] mg sublingual film 1 film, Sublingual, Daily, [id number] dissolve under the tongue DUE 08/31/2019, # 7 film, 0 Refills, Maintenance, 08/25/19 10:56:00 EDT, Film, [facility], 1 film Sublingual Daily,x7days,Instr:[id number]; dissolve under the tongue;... Start Date: 08/25/19 [...]
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
--- NOTE | 2023-04-29 18:27 | PC.NURSE ---
1000ml emptied from patients urinal
[2023-04-29 19:24] VITALS: BP 138/86; PULSE 86; RESP 18; TEMP 37.5; O2SAT 98
[2023-04-29 19:58] LABS: Appearance Urine Clear; Color Urine Yellow; Glucose Urine UA Negative (Negative); Leukocyte Esterase Urine Negative (Negative); Nitrite Urine Negative (Negative); PH 8.5 (5.0-9.0); Specific Gravity - Urine 1.015 (1.005-1.025); Urine Blood Negative (Negative); Urine Ketones Negative (Negative); Urine Protein Negative (Neg-Trace)
[2023-04-29] MEDS: Acetaminophen 325 MG TABLET 650 MG PO (20:18)
--- NOTE | 2023-04-29 20:51 | MHC.EDTECH ---
[facility] booked at 2051.
--- NOTE | 2023-04-29 21:44 | PC.NURSE ---
Spoke with Sophia BELLO at [facility] for nurse to nurse
== END 2023-04-29 21:44 | disposition home or self-care (01) ==
PROVIDERS: Emergency Provider Emergency Medicine; PCP Internal Medicine
DX: R60.0 Localized edema (principal); R06.02 Shortness of breath; Z79.899 Other long term (current) drug therapy
CPT/HCPCS: 36415; 71045; 80053; 81003; 83880; 85025; 93005; 93970; 99284; 99285

== ENCOUNTER → 2023-04-29 15:30 | Outpatient (BNV) | payer OTHER, SELFPAY | PROVIDERS: Emergency Provider Emergency Medicine; PCP Internal Medicine; Visit Provider Internal Medicine | DX: R06.02 Shortness of breath (principal) | CPT/HCPCS: 93010 ==